=== PATIENT | female | born 1945 | race Caucasian/White ===

== ENCOUNTER 2017-12-18 09:12 | Outpatient (CLI) | payer MEDICARE | END 2017-12-18 09:13 | disposition home or self-care (01) | LOC: BICMAMMO 09:12 | PROVIDERS: ATTEND Obstetrics & Gynecology | DX: Z12.31 Encounter for screening mammogram for malignant neoplasm of breast (principal) | CPT/HCPCS: 77063; 77067 ==

== ENCOUNTER 2018-02-05 08:44 | Outpatient (CLI) | payer MEDICARE ==
[2018-02-05 09:42] LABS: Hemoglobin 14.6 g/dL (12.0-16.0); Mean Corpuscular HGB CONC 33.4 g/dL (32.0-36.0); Mean Corpuscular Hemoglobin 33.2 pg (27.0-31.0); Mean Corpuscular Volume 99.5 fL (78.0-98.0); Mean Platelet Volume 7.2 fL (7.4-10.4); Platelet Count 218 thou/uL (130-400); RBC Distribution Width 11.4 % (11.5-14.5); Red Blood Cell (RBC) Count 4.39 mill/uL (4.20-5.40)
[2018-02-05 09:58] LABS: Anion Gap 12 mmol/L (10-20); BUN (Urea Nitrogen) 31 mg/dL (9.8-20.1); Calc. Creatinine Clearance 0 mL/min (70-130); Calcium 9.6 mg/dL (7.8-10.44); Carbon Dioxide 27 mmol/L (23-31); Chloride 105 mmol/L (98-107); Estimated GFR-MDRD 75; Glucose 118 mg/dL (83-110); Potassium 3.9 mmol/L (3.5-5.1); Sodium 140 mmol/L (136-145)
[2018-02-05 10:00] LABS: PTT 30.2 SEC (22.9-36.1); Prothrombin Time 13.2 SEC (12.0-14.7)
== END 2018-02-05 08:45 | disposition home or self-care (01) ==
LOC: LABBT 08:44
PROVIDERS: ATTEND Orthopaedic Surgery
DX: Z01.818 Encounter for other preprocedural examination (principal); M17.12 Unilateral primary osteoarthritis, left knee
CPT/HCPCS: 80048; 85027; 85610; 85730; 86850; 86900; 86901; 87081; 93005; 93010

== ENCOUNTER 2018-02-05 08:45 | Inpatient (IN) | payer MEDICARE ==
[2018-02-05 09:09] VITALS: BMI 28.3
[2018-02-09] MEDS ORDERED: Fentanyl 100 MCG/2 ML VIAL ONE ×3 (09:37→15:34)
[2018-02-09] MEDS ORDERED: Midazolam HCl 2 mg/2 ml Vial ONE (09:37)
[2018-02-09] MEDS ORDERED: traMADol HCl 50 MG TAB PO PRN ×3 (10:10→11:45)
[2018-02-09] MEDS ORDERED: Promethazine HCl 25 MG/ML VIAL IM PRN ×3 (10:10→13:26)
[2018-02-09] MEDS ORDERED: HYDROcodone/Acetaminophen 10/325 mg Tablet PO PRN (10:10)
[2018-02-09] MEDS ORDERED: Ondansetron HCl/PF 4 MG/2 ML Vial IVP PRN ×3 (10:10→13:26)
[2018-02-09] MEDS ORDERED: diphenhydrAMINE 25 MG CAP PO PRN (10:10)
[2018-02-09] MEDS ORDERED: Zolpidem Tartrate 5 MG TAB PO PRN ×2 (10:10→11:45)
[2018-02-09] MEDS ORDERED: Acetaminophen 325 MG TAB PO PRN (10:10)
[2018-02-09] MEDS ORDERED: Acetaminophen 1,000 MG in Premix Bag 1 BAG IVPB SCH (10:15)
[2018-02-09] MEDS ORDERED: Sodium Chloride 0.9% 100 ML ONE (10:46)
[2018-02-09] MEDS ORDERED: Melatonin 3 MG TAB PO PRN (11:00)
[2018-02-09] MEDS ORDERED: Ketorolac Tromethamine 30 MG/ML VIAL IVP PRN (11:45)
[2018-02-09] MEDS ORDERED: Fentanyl 100 MCG/2 ML VIAL IV PRN (11:46)
[2018-02-09] MEDS ORDERED: HYDROcodone/Acetaminophen 7.5/325 mg Tablet PO PRN (11:47)
[2018-02-09] MEDS ORDERED: Bupivacaine 0.5% 50 ML in Sodium Chloride 0.9% 50 ML NERVE BLCK SCH (12:00)
[2018-02-09] MEDS ORDERED: Neomycin-Polymyxin 1 ML AMP ONE ×2 (12:25→12:26)
[2018-02-09] MEDS ORDERED: Bupivacaine/Epinephrine 0.25% 30 ML VIAL ONE (12:25)
[2018-02-09] MEDS ORDERED: Promethazine HCl 25 MG/ML VIAL SLOW IVP PRN (13:26)
[2018-02-09] MEDS ORDERED: CEFAZOLIN/Water 2 GM/20 ML SYRINGE SLOW IVP SCH (14:00)
[2018-02-09] MEDS ORDERED: Ropivacaine 0.5% HCl/PF (150 MG/30 ML VIAL) ONE (14:31)
[2018-02-09] MEDS ORDERED: Bupivacaine 0.25% HCL 30 ML VIAL ONE (14:31)
[2018-02-09] MEDS ORDERED: PROPOFOL 200 MG/20 ML VIAL ONE (15:03)
[2018-02-09] MEDS ORDERED: Ondansetron HCl/PF 4 MG/2 ML Vial ONE (15:03)
[2018-02-09] MEDS ORDERED: Dexamethasone 20 MG/5 ML VIAL ONE (15:03)
[2018-02-09] MEDS ORDERED: Lidocaine 1% PF 5 ML VIAL ONE (15:03)
[2018-02-09] MEDS ORDERED: Ketorolac Tromethamine 30 MG/ML VIAL ONE (15:13)
[2018-02-09] MEDS ORDERED: HumaLOG 300 UNITS/3 ML VIAL SC PRN ×2 (15:24)
[2018-02-09] MEDS ORDERED: Dextrose 50% Abboject 50 ML SYRINGE SLOW IVP PRN (15:24)
[2018-02-09] MEDS ORDERED: Dextrose 5% in Water 1,000 ML IV PRN (15:24)
[2018-02-09] MEDS ORDERED: hydrALAZINE 20 MG/ML VIAL SLOW IVP PRN (15:26)
[2018-02-09] MEDS ORDERED: Loperamide HCl 2 MG CAP PO PRN (15:26)
[2018-02-09] MEDS ORDERED: Milk Of Magnesia 30 ML UDCUP PO PRN (15:26)
[2018-02-09] MEDS ORDERED: Eucerin (Mineral Oil/Petrolatum,White) 30 gm Jar TOP PRN (15:26)
[2018-02-09] MEDS ORDERED: Chloraseptic Spray 180 ml Bottle PO PRN (15:26)
[2018-02-09] MEDS ORDERED: Diabetic Tussin 200 MG/10 ML UDCUP PO PRN (15:26)
[2018-02-09] MEDS ORDERED: Artificial Tears 18 DROP/0.9 ML EA EYE PRN (15:26)
--- NOTE | 2018-02-09 15:38 | RAD ---
LEFT KNEE TWO VIEWS: History: Arthritis. Knee replacement. FINDINGS: Total knee prosthesis is in place without perihardware lucency. Soft tissue gas, intramedullary gas, and skin shamika are visible. IMPRESSION: Left knee prosthesis is in good radiographic position. POS: [facility]
--- NOTE | 2018-02-09 15:55 | CON ---
DATE OF CONSULTATION: 02/09/2018 PRIMARY CARE PHYSICIAN: Fish Nolasco M.D. REASON FOR CONSULTATION: Medical comanagement. REASON FOR ADMISSION: Left total knee replacement. HISTORY OF PRESENT ILLNESS: A 72-year-old female who has osteoarthritis of knee. She had previously right total knee replacement in [address] Quezada admitted electively for left total kn ee replacement, which was done without any complication. I saw this patient in a PICU. The patient was waking up from anesthesia. She was not complaining of any pain. Her monitor was in sinus rhythm . Her vitals were stable. The patient denies any UTI symptoms, constipation, diarrhea, melena or he matochezia. She does not have any chest pain. REVIEW OF SYSTEMS: Please see my HPI for pertinent positive and negative. All other review of syste ms reviewed and negative except as mentioned in the HPI. Constitutional: Weight loss or gain, ability to conduct usual activities. Skin: Rash, itching. Eyes: Double vision, pain. ENT/Mouth: Nose bleeding, neck stiffness, pain, tenderness. Cardiovascular: Palpitations, dyspnea on exertion, orthopnea. Respiratory: Shortness of breath, wheezing, cough, hemoptysis, fever or night sweats. Gastrointestinal: Poor appetite, abdominal pain, heartburn, nausea, vomiting, constipation, or diarrhea. Genitourinary: Urgency, frequency, dysuria, nocturia. Musculoskeletal: Pain, swelling. Neurologic/Psychiatric: Anxiety, depression. Allergy/Immunologic: Skin rash, bleeding tendency. PAST MEDICAL HISTORY: Diabetes type 2; history of deep venous thrombosis, on chronic anticoagulation ; polymyalgia rheumatica; obstructive sleep apnea; chronic venous insufficiency; hypertension; dyslip idemia. PAST SURGICAL HISTORY: Tonsillectomy, foot surgery, hysterectomy, carpal tunnel repair, left hand thomson rgery, right total knee replacement, status post left total knee replacement, anterior cervical fusio n, hysterectomy. PAST PSYCHIATRIC HISTORY: Reviewed and negative. FAMILY HISTORY: Father from cancer. Mother from unknown medical problem. ALLERGIES: SULFA DRUGS. CURRENT HOME MEDICATIONS: Eliquis 2.5 mg p.o. b.i.d., Lipitor 40 mg p.o. daily, vitamin D3 2000 unit s p.o. daily, vitamin B12 1000 mcg p.o. daily, dapagliflozin 5 mg p.o. daily, losartan 50 mg p.o. kirstie ly, omeprazole 20 mg p.o. daily, Actos 30 mg p.o. daily, prednisone 5 mg p.o. daily, Januvia 100 mg p .o. daily. HOSPITAL COURSE: Reviewed. SOCIAL HISTORY: The patient lives at home. No history of tobacco, alcohol or illicit drug abuse. PHYSICAL EXAMINATION: VITAL SIGNS: Currently on monitor showing blood pressure 134/80, pulse 72, respiratory rate 18, afeb rile, saturation normal on 2 liters nasal cannula. Weight 155 pounds. GENERAL: The patient is currently alert, awake, no obvious acute distress. HEENT: Normocephalic, atraumatic. Eyes: Pupils round, reactive to light. Extraocular muscle intac t. ENT: Oropharynx within normal limits. Moist mucous membranes. No oral lesion, no pharyngeal erythe ma, no exudate. NECK: Supple, no JVD, no thyromegaly, no carotid bruit, no jugular venous distention. LUNGS: Clear to auscultation without any rhonchi or rales. CARDIAC: S1, S2 regular. No murmur, no gallop, no rub. ABDOMEN: Soft, bowel sounds present, nontender, nondistended. No organomegaly, no mass, no suprapub ic tenderness. BACK: Unremarkable, no CVA tenderness. EXTREMITIES: Upper extremity: Passive movement of all joints are normal. Lower extremities: Left knee covered with a dressing. NEUROLOGIC: Grossly nonfocal examination. SIGNIFICANT LABORATORY: Most recent labs, CBC: WBC 6.0, hemoglobin 14.6, platelet 218. INR 1.0. B MP: Sodium 140, potassium 3.9, chloride 105, carbon dioxide 27, BUN 31, creatinine 0.76, glucose 118 , calcium 9.6. ASSESSMENT AND PLAN: 1. Status post left total knee replacement. The patient will get anticoagulation with aspirin 81 mg p.o. b.i.d. Nerve block as per Anesthesia for pain control. Pain medication to control her pain. PT/OT as per [facility] protocol. 2. Hypertension. We will continue losartan 50 mg p.o. daily. We will hold her blood pressure medic ation if blood pressure systolic less than 120. We will monitor vitals while in hospital and adjust medication accordingly. 3. Dyslipidemia. Continue Lipitor 40 mg p.o. daily. 4. Gastroesophageal reflux disease. Continue Protonix 40 mg p.o. daily. 5. Diabetes type 2. Insulin as per sliding scale per protocol. Continue home medication Actos 30 m g p.o. daily. Diabetic diet will be given. 6. Deep venous thrombosis prophylaxis. The patient is already on aspirin therapy per protocol. 7. Gastrointestinal prophylaxis, Protonix 40 mg p.o. daily. CODE STATUS: The patient is FULL CODE. The patient does not have any obvious surrogate decision john er at this point. Disposition plan based on clinical course. Thank you for the consult. We will follow up with you while in hospital.
[2018-02-09] MEDS: REFRESH PLUS (Carboxymethylcellulose 0.5%) Opth Drops EA EYE SCH ×2 (17:15→18:51)
[2018-02-09] MEDS ORDERED: cycloSPORINE 0.05% Ophthalmic Droperette EA EYE SCH (21:00)
[2018-02-09] MEDS: Sodium Chloride 0.9% 1,000 ML IV SCH ×2 (21:11→21:42)
[2018-02-09] MEDS: cycloSPORINE 0.05% Ophthalmic Droperette EA EYE SCH (21:26)
[2018-02-09] MEDS: Doxycycline 100 MG CAP PO SCH (21:26)
[2018-02-09] MEDS: CEFAZOLIN/Water 2 GM/20 ML SYRINGE SLOW IVP SCH (21:29)
[2018-02-09] MEDS: Aspirin 81 mg Enteric Coated Tablet PO SCH (21:36)
[2018-02-09] MEDS: GENTEAL SEVERE 10 GM TUBE EA EYE SCH (21:37)
[2018-02-09] MEDS: Lacri-Lube Opth Oint 3.5 GM TUBE EA EYE SCH (21:41)
[2018-02-10] MEDS: Bupivacaine 0.5% 50 ML in Sodium Chloride 0.9% 50 ML NERVE BLCK SCH ×2 (03:24→16:13)
[2018-02-10] MEDS: Sodium Chloride 0.9% 1,000 ML IV SCH ×2 (05:20→16:24)
[2018-02-10] MEDS: CEFAZOLIN/Water 2 GM/20 ML SYRINGE SLOW IVP SCH (05:26)
[2018-02-10 05:27] LABS: Hemoglobin 13.4 g/dL (12.0-16.0); Mean Corpuscular HGB CONC 33.8 g/dL (32.0-36.0); Mean Corpuscular Hemoglobin 33.5 pg (27.0-31.0); Mean Platelet Volume 7.5 fL (7.4-10.4); Platelet Count 191 thou/uL (130-400); RBC Distribution Width 11.2 % (11.5-14.5); White Blood Cell (WBC) Count 12.7 thou/uL (4.8-10.8)
[2018-02-10] MEDS: Senokot S 8.6-50 MG TAB PO SCH ×2 (09:26→20:20)
[2018-02-10] MEDS: Ferrous Gluconate 324 MG TAB PO SCH ×2 (09:26→20:20)
[2018-02-10] MEDS: Aspirin 81 mg Enteric Coated Tablet PO SCH (09:27)
[2018-02-10] MEDS: Losartan 25 MG TAB PO SCH (09:28)
[2018-02-10] MEDS: predniSONE 5 MG TAB PO SCH (09:28)
[2018-02-10] MEDS: Alogliptin 25 MG TAB PO SCH (09:29)
[2018-02-10] MEDS: Apixaban 2.5 MG TAB PO SCH ×2 (09:29→20:20)
[2018-02-10] MEDS: Atorvastatin Calcium 40 MG TAB PO SCH (09:31)
[2018-02-10] MEDS: Doxycycline 100 MG CAP PO SCH ×3 (09:44→20:20)
[2018-02-10] MEDS: cycloSPORINE 0.05% Ophthalmic Droperette EA EYE SCH ×2 (09:49→20:19)
[2018-02-10] MEDS: GENTEAL SEVERE 10 GM TUBE EA EYE SCH ×4 (09:50→21:39)
[2018-02-10] MEDS: Pioglitazone HCl 15 MG TAB PO SCH (09:51)
[2018-02-10] MEDS: Multivitamin W/ Minerals 1 TAB PO SCH (09:52)
--- NOTE | 2018-02-10 10:59 | PDOC.PN ---
- Subjective Encounter Start Date: 02/10/18 Encounter Start Time: 08:10 -: old records requested/rev Patient seen and examined. No new complaints. No overnight events her pain is controlled - Objective Resuscitation Status: Resuscitation Status FULL:Full Resuscitation MAR Reviewed: Yes Vital Signs & Weight: Vital Signs (12 hours) Temp Pulse Resp BP Pulse Ox 02/10/18 07:40 98.6 F 83 18 147/71 H 98 02/10/18 07:35 98.5 F 81 16 02/10/18 05:00 98.5 F 81 16 129/73 96 02/10/18 00:05 98.2 F 91 16 116/73 95 Weight Weight 155 lb I&O: 02/09/18 02/10/18 02/11/18 06:59 06:59 06:59 Intake Total 360 Output Total 2250 Balance -1890 Result Diagrams: 02/10/18 04:54 Additional Labs: Accuchecks 02/10/18 02/09/18 02/09/18 06:32 22:13 17:30 POC Glucose 179 H 281 H 152 H Phys Exam - Physical Examination Constitutional: NAD HEENT: PERRLA, moist MMs, sclera anicteric Neck: no JVD, supple Respiratory: no wheezing, no rales, no rhonchi Cardiovascular: RRR, no significant murmur, no rub Gastrointestinal: soft, non-tender, no distention, positive bowel sounds Musculoskeletal: no edema, pulses present left knee with dressing, nerve block+ Neurological: non-focal, normal sensation, moves all 4 limbs Psychiatric: normal affect, A&O x 3 Skin: no rash, normal turgor Dx/Plan (1) Status post total left knee replacement Code(s): Z96.652 - PRESENCE OF LEFT ARTIFICIAL KNEE JOINT Status: Acute (2) Chronic anticoagulation Code(s): Z79.01 - GROUP HOME (CURRENT) USE OF ANTICOAGULANTS Status: Chronic (3) DM II (diabetes mellitus, type II), controlled Code(s): E11.9 - TYPE 2 DIABETES MELLITUS WITHOUT COMPLICATIONS Status: Chronic (4) GERD (gastroesophageal reflux disease) Code(s): K21.9 - GASTRO-ESOPHAGEAL REFLUX DISEASE WITHOUT ESOPHAGITIS Status: Chronic (5) Hyperlipemia Code(s): E78.5 - HYPERLIPIDEMIA, UNSPECIFIED Status: Chronic (6) Hypertension Code(s): I10 - ESSENTIAL (PRIMARY) HYPERTENSION Status: Chronic Comment: Stable, continue current regimen (7) H/O deep venous thrombosis Code(s): Z86.718 - PERSONAL HISTORY OF OTHER VENOUS THROMBOSIS AND EMBOLISM Status: Chronic - Plan cont current plan of care, plan discussed w/ family, PT/OT * elliquis started today * will dc aspirin * continue PT/OT as per [facility] protocol treatment * pain controlled * nerve block as per anesthesia * possible discharge tomorrow * medication reviewed as below * symptomatic treatment. Review of Systems - Review of Systems Eyes: negative: Pain, Vision Change, Conjunctivae Inflammation, Eyelid Inflammation, Redness, Other ENT: negative: Ear Pain, Ear Discharge, Nose Pain, Nose Discharge, Nose Congestion, Mouth Pain, Mouth Swelling, Throat Pain, Throat Swelling, Other Respiratory: negative: Cough, Dry, Shortness of Breath, Hemoptysis, SOB with Excertion, Pleuritic Pain, Sputum, Wheezing Cardiovascular: negative: chest pain, palpitations, orthopnea, paroxysmal nocturnal dyspnea, edema, light headedness, other Gastrointestinal: negative: Nausea, Vomiting, Abdominal Pain, Diarrhea, Constipation, Melena, Hematochezia, Other Genitourinary: negative: Dysuria, Frequency, Incontinence, Hematuria, Retention , Other Musculoskeletal: negative: Neck Pain, Shoulder Pain, Arm Pain, Back Pain, Hand Pain, Leg Pain, Foot Pain, Other Skin: negative: Rash, Lesions, Elijah, Bruising, Other - Medications/Allergies Allergies/Adverse Reactions: Allergies Allergy/AdvReac Type Severity Reaction Status Date / Time Sulfa (Sulfonamide Allergy Hives Verified 02/05/18 09:09 Antibiotics) Medications: Current Medications Acetaminophen (Tylenol) 650 mg PO Q4H PRN PRN Reason: LEWIS/ T > 101F; Mild Pain (1-3) Hydrocodone Bitart/Acetaminophen ([place] 7.5/325) 1 tab PO Q4H PRN PRN Reason: Mild Pain (1-3) Hydrocodone Bitart/Acetaminophen ([place] 7.5/325) 2 tab PO Q4H PRN PRN Reason: Moderate Pain (4-6) Alogliptin Benzoate (Alogliptin) 25 mg PO QAM [facility] Last Admin: 02/10/18 09:29 Dose: 25 mg Apixaban (Eliquis) 2.5 mg PO BID [facility] Last Admin: 02/10/18 09:29 Dose: 2.5 mg Artificial Tears (Tears Naturale) 0 drop EA EYE PRN PRN PRN Reason: Dry Eyes Aspirin (Ecotrin) 81 mg PO BID [facility] Last Admin: 02/10/18 09:27 Dose: 81 mg Atorvastatin Calcium (Lipitor) 40 mg PO QAM [facility] Last Admin: 02/10/18 09:31 Dose: 40 mg Cyclosporine (Restasis) 0 ml EA EYE BID [facility] Last Admin: 02/10/18 09:49 Dose: Not Given Dextrose/Water (Dextrose 50%) 25 gm SLOW IVP PRN PRN PRN Reason: Hypoglycemia Diphenhydramine HCl (Benadryl) 25 mg PO Q6H PRN PRN Reason: Itching Doxycycline Hyclate (Vibramycin) 100 mg PO BID [facility] Last Admin: 02/10/18 09:44 Dose: 100 mg Fentanyl (Sublimaze) 50 mcg IV Q1H PRN PRN Reason: Breakthrough Pain Ferrous Gluconate (Fergon) 324 mg PO BID [facility] Last Admin: 02/10/18 09:26 Dose: 324 mg Glucagon (Glucagon) 1 mg IM PRN PRN PRN Reason: Hypoglycemia Guaifenesin (Robitussin Sf) 200 mg PO Q4H PRN PRN Reason: Cough Hydralazine HCl (Apresoline) 10 mg SLOW IVP Q4H PRN PRN Reason: Systolic BP > 180 Hypromellose (Genteal Severe) 0 gm EA EYE QID [facility] Last Admin: 02/10/18 09:50 Dose: Not Given Sodium Chloride (Normal Saline 0.9%) 1,000 mls @ 100 mls/hr IV .Q10H [facility] Last Admin: 02/10/18 05:20 Dose: Not Given Bupivacaine HCl 50 ml/ Sodium (Chloride) 100 mls @ 8 mls/hr NERVE BLCK INF [facility] Last Admin: 02/10/18 03:24 Dose: 100 mls Dextrose/Water (D5w) 1,000 mls @ 0 mls/hr IV .Q0M PRN; As Directed PRN Reason: Hypoglycemia Insulin Human Lispro (Humalog) 0 units SC .MODERATE SLIDING SC PRN PRN Reason: Moderate Correctional Scale Insulin Human Lispro (Humalog) 0 units SC .BEDTIME SLIDING SC PRN PRN Reason: Bedtime Correctional Scale Iron/Minerals/Multivitamins (Theragran M) 1 tab PO DAILY [facility] Last Admin: 02/10/18 09:52 Dose: 1 tab Ketorolac Tromethamine (Toradol) 15 mg IVP Q6H PRN PRN Reason: Moderate Pain (4-6) Stop: 02/12/18 11:46 Loperamide HCl (Imodium) 2 mg PO PRN PRN PRN Reason: Diarrhea/Loose Stools Losartan Potassium (Cozaar) 50 mg PO [facility] Last Admin: 02/10/18 09:28 Dose: 50 mg Magnesium Hydroxide (Milk Of Magnesium) 30 ml PO DAILYPRN PRN PRN Reason: Constipation Melatonin (Melatonin) 4.5 mg PO HS PRN PRN Reason: Insomnia Mineral Oil/White Petrolatum (Lacri-Lube Ointment) 0 gm EA EYE HS [facility] Last Admin: 02/09/18 21:41 Dose: Not Given Mineral Oil/White Petrolatum (Eucerin Cream) 0 gm TOP BIDPRN PRN PRN Reason: Dry Skin Morphine Sulfate (Morphine) 2 mg IVP Q2H PRN PRN Reason: Moderate Pain (4-6) Morphine Sulfate (Morphine Sulfate) 4 mg IVP Q2H PRN PRN Reason: Severe Pain (7-10) Ondansetron HCl (Zofran) 4 mg IVP Q6H PRN PRN Reason: Nausea/Vomiting Pantoprazole Sodium (Protonix) 40 mg PO DAILY [facility] Last Admin: 02/10/18 09:54 Dose: 40 mg Dapagliflozin Propanediol [Farxiga ] 5 Mg 0 each PO [facility] Phenol (Chloraseptic [place] 180 Ml Bot) 0 ml PO PRN PRN PRN Reason: Sore Throat Pioglitazone HCl (Actos) 30 mg PO [facility] Last Admin: 02/10/18 09:51 Dose: 30 mg Prednisone (Prednisone) 5 mg PO [facility] Last Admin: 02/10/18 09:28 Dose: 5 mg Promethazine HCl (Phenergan) 12.5 mg IM Q4H PRN PRN Reason: Nausea Senna/Docusate Sodium (Senokot S) 2 tab PO BID [facility] Last Admin: 02/10/18 09:26 Dose: 2 tab Sodium Chloride (Flush - Normal Saline) 10 ml IVF PRN PRN PRN Reason: Saline Flush Last Admin: 02/10/18 05:26 Dose: 10 ml Tramadol HCl (Ultram) 50 mg PO Q6H PRN PRN Reason: Mild Pain (1-3) Tramadol HCl (Ultram) 100 mg PO Q6H PRN PRN Reason: Moderate Pain 4-6 Zolpidem Tartrate (Ambien) 5 mg PO HSPRN PRN PRN Reason: Insomnia
--- NOTE | 2018-02-10 12:08 | OP ---
DATE OF PROCEDURE: 02/09/2018 PREOPERATIVE DIAGNOSIS: Osteoarthrosis, left knee. POSTOPERATIVE DIAGNOSIS: Osteoarthrosis, left knee. PROCEDURE: Left total knee arthroplasty. ANESTHESIA: General. SURGEON: Dr. Epi Quezada OPERATING ENGINEER: DOE Macias COMPLICATIONS: None. CONDITION: Good. ESTIMATED BLOOD LOSS: Minimal. DRAINS: None. TOURNIQUET: Per anesthesia. TECHNIQUE: Consent was obtained. The patient was taken to the operating room and placed in supine p osition. After adequate general anesthesia achieved, the patient's left knee was examined. She has significant patellofemoral crepitus, moderate effusion, mild valgus deformities. She was then positi oned, prepped and draped in the usual sterile fashion. Tourniquet placed on left upper thigh. Leg w as elevated, exsanguinated, and tourniquet inflated prior to incision. Standard midline vertical inc ision was made. It was taken down to subcutaneous tissues exposing extensor mechanism. Medial parap atellar arthrotomy was performed. Patella subluxed laterally. The patient had severe erosive change s over the lateral trochlea and the entire patella which was grade 4 eburnated bone. The patient has significant devalgus of the distal femur with a hypoplastic lateral condyle. Using intramedullary g uide, distal 5 degree resection on valgus resection on the femur was performed using AP and epicondyl ar axis. Proper rotation, position, a size 4 cutting block was placed. Anterior, posterior, and mitesh mfer cuts were completed for the size 4 evolution femur. The tibia was then subluxed anteriorly. Us ing external guide, appropriate resection was performed. Cruciate ligaments were debrided and flexio n, extension gaps were then balanced at 0 and 90 degrees with the 10 mm spacer. Patella was then car efully resected 5-6 mm off the medial portion and the remaining area was smoothed, osteophytes remove d and a 29 mm patella was medialized. The trial components were then placed, 4 femur, 4 tibia, 10 mm bearing surface, 29 patella was put through range of motion. The patient had excellent patellofemor al alignment, tracking, full range of motion. Ligaments were stable. The tibial baseplate was then marked and prepared with a broach. All surfaces were irrigated copiously, dried. Femur, tibia, and patella cemented. Excess cement removed and again trialed with the 10 mm bearing surface. This was chosen and snap fit. After copious irrigation arthrotomy closed with #2 mersilene, #1 Vicryl, subq w ith 0 and 2-0 Vicryl, and the skin with shamika. Sterile bulky dressing was applied and patient take n to recovery. Prognosis is good.
[2018-02-10] MEDS: Dapagliflozin Propanediol [Farxiga] 5 MG PO SCH (13:41)
[2018-02-10] MEDS: Lacri-Lube Opth Oint 3.5 GM TUBE EA EYE SCH (21:39)
[2018-02-11] MEDS: Sodium Chloride 0.9% 1,000 ML IV SCH (01:51)
[2018-02-11] MEDS: Bupivacaine 0.5% 50 ML in Sodium Chloride 0.9% 50 ML NERVE BLCK SCH (04:09)
[2018-02-11 04:45] LABS: Hemoglobin 12.9 g/dL (12.0-16.0); Mean Corpuscular HGB CONC 34.6 g/dL (32.0-36.0); Mean Corpuscular Hemoglobin 33.6 pg (27.0-31.0); Mean Corpuscular Volume 97.3 fL (78.0-98.0); Mean Platelet Volume 7.6 fL (7.4-10.4); Platelet Count 180 thou/uL (130-400); RBC Distribution Width 11.2 % (11.5-14.5); Red Blood Cell (RBC) Count 3.83 mill/uL (4.20-5.40); White Blood Cell (WBC) Count 10.3 thou/uL (4.8-10.8)
[2018-02-11] MEDS ORDERED: Acetaminophen ER (8hr) 650 MG TAB PO PRN (06:35)
[2018-02-11 07:44] VITALS: BP 146/74
[2018-02-11] MEDS: HYDROcodone/Acetaminophen 7.5/325 mg Tablet PO PRN ×2 (08:35→13:11)
[2018-02-11] MEDS: Senokot S 8.6-50 MG TAB PO SCH (08:36)
[2018-02-11] MEDS: Alogliptin 25 MG TAB PO SCH (08:36)
[2018-02-11] MEDS: Losartan 25 MG TAB PO SCH (08:36)
[2018-02-11] MEDS: Ferrous Gluconate 324 MG TAB PO SCH (08:36)
[2018-02-11] MEDS: predniSONE 5 MG TAB PO SCH (08:36)
[2018-02-11] MEDS: Pioglitazone HCl 15 MG TAB PO SCH (08:36)
[2018-02-11] MEDS: Multivitamin W/ Minerals 1 TAB PO SCH (08:37)
[2018-02-11] MEDS: Atorvastatin Calcium 40 MG TAB PO SCH (08:37)
[2018-02-11] MEDS: Apixaban 2.5 MG TAB PO SCH (08:38)
[2018-02-11] MEDS: Dapagliflozin Propanediol [Farxiga] 5 MG PO SCH (08:38)
[2018-02-11] MEDS: Doxycycline 100 MG CAP PO SCH (08:38)
[2018-02-11] MEDS ORDERED: Cyanocobalamin (Vitamin B-12) 1,000 MCG TAB PO SCH (09:00)
[2018-02-11] MEDS ORDERED: Non-Formulary Item 1 EACH (Apixaban [Eliquis] 2.5 MG) PO SCH (09:00)
--- NOTE | 2018-02-11 11:07 | PDOC.PN ---
- Subjective Encounter Start Date: 02/11/18 Encounter Start Time: 08:10 Patient seen and examined. No new complaints. No overnight events - Objective Resuscitation Status: Resuscitation Status FULL:Full Resuscitation MAR Reviewed: Yes Vital Signs & Weight: Vital Signs (12 hours) Temp Pulse Resp BP BP BP Pulse Ox 02/11/18 07:22 99.4 F 104 H 20 146/74 H 93 L 02/11/18 04:00 99.5 F 98 18 131/71 95 02/11/18 00:40 100.4 F H 103 H 18 131/73 94 L Weight Admit Weight 155 lb Weight 155 lb I&O: 02/10/18 02/11/18 02/12/18 06:59 06:59 06:59 Intake Total 360 2380 Output Total 2250 1400 Balance -1890 980 Result Diagrams: 02/11/18 03:32 Additional Labs: Accuchecks 02/11/18 02/10/18 02/10/18 05:46 21:31 17:00 POC Glucose 122 H 160 H 213 H 02/10/18 11:26 POC Glucose 130 H Phys Exam - Physical Examination Constitutional: NAD HEENT: PERRLA, moist MMs, sclera anicteric Neck: no JVD, supple Respiratory: no wheezing, no rales, no rhonchi Cardiovascular: RRR, no significant murmur, no rub Gastrointestinal: soft, non-tender, no distention, positive bowel sounds Musculoskeletal: no edema, pulses present Neurological: non-focal, normal sensation, moves all 4 limbs Psychiatric: normal affect, A&O x 3 Skin: no rash, normal turgor Dx/Plan (1) Status post total left knee replacement Code(s): Z96.652 - PRESENCE OF LEFT ARTIFICIAL KNEE JOINT Status: Acute (2) Chronic anticoagulation Code(s): Z79.01 - [facility]LTER (CURRENT) USE OF ANTICOAGULANTS Status: Chronic (3) DM II (diabetes mellitus, type II), controlled Code(s): E11.9 - TYPE 2 DIABETES MELLITUS WITHOUT COMPLICATIONS Status: Chronic (4) GERD (gastroesophageal reflux disease) Code(s): K21.9 - GASTRO-ESOPHAGEAL REFLUX DISEASE WITHOUT ESOPHAGITIS Status: Chronic (5) Hyperlipemia Code(s): E78.5 - HYPERLIPIDEMIA, UNSPECIFIED Status: Chronic (6) Hypertension Code(s): I10 - ESSENTIAL (PRIMARY) HYPERTENSION Status: Chronic Comment: Stable, continue current regimen (7) H/O deep venous thrombosis Code(s): Z86.718 - PERSONAL HISTORY OF OTHER VENOUS THROMBOSIS AND EMBOLISM Status: Chronic - Plan cont current plan of care, PT/OT * medication reviewed as below * symptomatic treatment * see discharge atrik. Review of Systems - Review of Systems ENT: negative: Ear Pain, Ear Discharge, Nose Pain, Nose Discharge, Nose Congestion, Mouth Pain, Mouth Swelling, Throat Pain, Throat Swelling, Other Respiratory: negative: Cough, Dry, Shortness of Breath, Hemoptysis, SOB with Excertion, Pleuritic Pain, Sputum, Wheezing Cardiovascular: negative: chest pain, palpitations, orthopnea, paroxysmal nocturnal dyspnea, edema, light headedness, other Gastrointestinal: negative: Nausea, Vomiting, Abdominal Pain, Diarrhea, Constipation, Melena, Hematochezia, Other Genitourinary: negative: Dysuria, Frequency, Incontinence, Hematuria, Retention , Other Musculoskeletal: negative: Neck Pain, Shoulder Pain, Arm Pain, Back Pain, Hand Pain, Leg Pain, Foot Pain, Other - Medications/Allergies Allergies/Adverse Reactions: Allergies Allergy/AdvReac Type Severity Reaction Status Date / Time Sulfa (Sulfonamide Allergy Hives Verified 02/05/18 09:09 Antibiotics) Medications: Current Medications Acetaminophen (Tylenol) 650 mg PO Q4H PRN PRN Reason: LEWIS/ T > 101F; Mild Pain (1-3) Acetaminophen (Tylenol Er (8hr Arthritis Pain)) 650 mg PO Q8H PRN PRN Reason: Pain 1-3 Hydrocodone Bitart/Acetaminophen ([place] 7.5/325) 1 tab PO Q4H PRN PRN Reason: Mild Pain (1-3) Hydrocodone Bitart/Acetaminophen ([place] 7.5/325) 2 tab PO Q4H PRN PRN Reason: Moderate Pain (4-6) Last Admin: 02/11/18 08:35 Dose: 2 tab Alogliptin Benzoate (Alogliptin) 25 mg PO QAM [facility] Last Admin: 02/11/18 08:36 Dose: 25 mg Apixaban (Eliquis) 2.5 mg PO BID [facility] Last Admin: 02/11/18 08:38 Dose: 2.5 mg Artificial Tears (Tears Naturale) 0 drop EA EYE PRN PRN PRN Reason: Dry Eyes Atorvastatin Calcium (Lipitor) 40 mg PO QAM [facility] Last Admin: 02/11/18 08:37 Dose: 40 mg Cholecalciferol (Vitamin D3) [facility] Last Admin: 02/11/18 08:36 Dose: 2,000 units Cyanocobalamin (Vitamin B-12) 1,000 mcg PO QAM [facility] Last Admin: 02/11/18 08:37 Dose: 1,000 mcg Cyclosporine (Restasis) 0 ml EA EYE BID [facility] Last Admin: 02/10/18 20:19 Dose: 0.4 ml Dextrose/Water (Dextrose 50%) 25 gm SLOW IVP PRN PRN PRN Reason: Hypoglycemia Diphenhydramine HCl (Benadryl) 25 mg PO Q6H PRN PRN Reason: Itching Doxycycline Hyclate (Vibramycin) 100 mg PO BID [facility] Last Admin: 02/11/18 08:38 Dose: 100 mg Fentanyl (Sublimaze) 50 mcg IV Q1H PRN PRN Reason: Breakthrough Pain Ferrous Gluconate (Fergon) 324 mg PO BID [facility] Last Admin: 02/11/18 08:36 Dose: 324 mg Glucagon (Glucagon) 1 mg IM PRN PRN PRN Reason: Hypoglycemia Guaifenesin (Robitussin Sf) 200 mg PO Q4H PRN PRN Reason: Cough Hydralazine HCl (Apresoline) 10 mg SLOW IVP Q4H PRN PRN Reason: Systolic BP > 180 Hypromellose (Genteal Severe) 0 gm EA EYE QID [facility] Last Admin: 02/10/18 21:39 Dose: Not Given Sodium Chloride (Normal Saline 0.9%) 1,000 mls @ 100 mls/hr IV .Q10H [facility] Last Admin: 02/11/18 01:51 Dose: Not Given Bupivacaine HCl 50 ml/ Sodium (Chloride) 100 mls @ 8 mls/hr NERVE BLCK INF [facility] Last Admin: 02/11/18 04:09 Dose: 100 mls Dextrose/Water (D5w) 1,000 mls @ 0 mls/hr IV .Q0M PRN; As Directed PRN Reason: Hypoglycemia Insulin Human Lispro (Humalog) 0 units SC .MODERATE SLIDING SC PRN PRN Reason: Moderate Correctional Scale Insulin Human Lispro (Humalog) 0 units SC .BEDTIME SLIDING SC PRN PRN Reason: Bedtime Correctional Scale Iron/Minerals/Multivitamins (Theragran M) 1 tab PO DAILY [facility] Last Admin: 02/11/18 08:37 Dose: 1 tab Ketorolac Tromethamine (Toradol) 15 mg IVP Q6H PRN PRN Reason: Moderate Pain (4-6) Stop: 02/12/18 11:46 Last Admin: 02/10/18 13:40 Dose: 15 mg Loperamide HCl (Imodium) 2 mg PO PRN PRN PRN Reason: Diarrhea/Loose Stools Losartan Potassium (Cozaar) 50 mg PO [facility] Last Admin: 02/11/18 08:36 Dose: 50 mg Magnesium Hydroxide (Milk Of Magnesium) 30 ml PO DAILYPRN PRN PRN Reason: Constipation Melatonin (Melatonin) 4.5 mg PO HS PRN PRN Reason: Insomnia Mineral Oil/White Petrolatum (Lacri-Lube Ointment) 0 gm EA EYE [facility] Last Admin: 02/10/18 21:39 Dose: Not Given Mineral Oil/White Petrolatum (Eucerin Cream) 0 gm TOP BIDPRN PRN PRN Reason: Dry Skin Morphine Sulfate (Morphine) 2 mg IVP Q2H PRN PRN Reason: Moderate Pain (4-6) Morphine Sulfate (Morphine Sulfate) 4 mg IVP Q2H PRN PRN Reason: Severe Pain (7-10) Ondansetron HCl (Zofran) 4 mg IVP Q6H PRN PRN Reason: Nausea/Vomiting Pantoprazole Sodium (Protonix) 40 mg PO DAILY [facility] Last Admin: 02/11/18 08:36 Dose: 40 mg Dapagliflozin Propanediol [Farxiga ] 5 Mg [facility] Last Admin: 02/11/18 08:38 Dose: 1 each Phenol (Chloraseptic [place] 180 Ml Bot) 0 ml PO PRN PRN PRN Reason: Sore Throat Pioglitazone HCl (Actos) [facility] Last Admin: 02/11/18 08:36 Dose: 30 mg Prednisone (Prednisone) [address] [facility] Last Admin: 02/11/18 08:36 Dose: 5 mg Promethazine HCl (Phenergan) 12.5 mg IM Q4H PRN PRN Reason: Nausea Senna/Docusate Sodium (Senokot S) 2 tab PO BID [facility] Last Admin: 02/11/18 08:36 Dose: 2 tab Sodium Chloride (Flush - Normal Saline) 10 ml IVF PRN PRN PRN Reason: Saline Flush Last Admin: 02/10/18 05:26 Dose: 10 ml Tramadol HCl (Ultram) 50 mg PO Q6H PRN PRN Reason: Mild Pain (1-3) Tramadol HCl (Ultram) 100 mg PO Q6H PRN PRN Reason: Moderate Pain 4-6 Zolpidem Tartrate (Ambien) 5 mg PO HSPRN PRN PRN Reason: Insomnia
[2018-02-11 11:49] VITALS: TEMP 98.6
[2018-02-11] MEDS: GENTEAL SEVERE 10 GM TUBE EA EYE SCH (12:35)
[2018-02-11] MEDS: cycloSPORINE 0.05% Ophthalmic Droperette EA EYE SCH (12:35)
--- NOTE | 2018-02-11 13:12 | DIS ---
DATE OF ADMISSION: 02/09/2018 DATE OF DISCHARGE: 02/11/2018 PRIMARY CARE PHYSICIAN: Dr. Gaurav Whitten PRIMARY ATTENDING: Dr. Epi Quezada. DISCHARGE DISPOSITION: Home. PRIMARY DISCHARGE DIAGNOSIS: Status post left total knee replacement. SECONDARY DISCHARGE DIAGNOSES: History of deep venous thrombosis, chronic anticoagulation with Eliqu is; diabetes type 2; gastroesophageal reflux disease; dyslipidemia; hypertension. PRIMARY PROCEDURE/OPERATION: Left total knee replacement. RADIOLOGICAL INVESTIGATION: Knee x-ray. SIGNIFICANT LABORATORY DATA: Hemoglobin 12.9. DISCHARGE MEDICATIONS: Tylenol Arthritis one tablet p.r.n., Eliquis 2.5 mg p.o. b.i.d., Lipitor 40 m g p.o. daily, vitamin D3 2000 units p.o. daily, vitamin B12 1000 mcg p.o. daily, dapagliflozin 5 mg d aily, losartan 50 mg p.o. daily, melatonin 5 mg p.o. at bedtime p.r.n., omeprazole 20 mg p.o. daily, Actos 30 mg p.o. daily, prednisone 5 mg p.o. daily, Januvia 100 mg p.o. daily. CONTRAINDICATIONS: None. CODE STATUS: FULL CODE. INPATIENT CONSULTANTS: Dr. Quezada was primary. Sound team was consulted for medical comanagement. TEST RESULTS PENDING ON DISCHARGE: None. ALLERGIES: SULFA DRUGS. DISCHARGE PLAN: Post hospital, the patient will follow up with Dr. Damien Chowdary on 02/23/2018. The patient will make appointment with primary care physician in 1 week. HOSPITAL COURSE: A 72-year-old female who was electively admitted by Dr. Quezada on 02/09/2018. We were consulted after surgery for medical comanagement. Please see my consult note for further detail . While in hospital, we continued her Eliquis for DVT prophylaxis. She did very well [facility]. The patient is planned for discharge today. The patient is seen and examined at bedside. Please see my progress note from today for further deta il. We will sign off.
== END 2018-02-11 14:18 | disposition home or self-care (01) | DRG 470 ==
LOC: SURG A 02-09 09:21 → SJJU 02-09 15:23
PROVIDERS: ADMIT Orthopaedic Surgery; ATTEND Orthopaedic Surgery
PROC: 0SRD0J9 Replacement of Left Knee Joint with Synthetic Substitute, Cemented, Open Approach (ICD-10-PCS; principal; 2018-02-09)
DX: M17.12 Unilateral primary osteoarthritis, left knee (principal); Z86.711 Personal history of pulmonary embolism; Z79.01 Long term (current) use of anticoagulants; K21.9 Gastro-esophageal reflux disease without esophagitis; E78.5 Hyperlipidemia, unspecified; I10 Essential (primary) hypertension; E11.9 Type 2 diabetes mellitus without complications; G47.33 Obstructive sleep apnea (adult) (pediatric); M35.3 Polymyalgia rheumatica
CPT/HCPCS: 36415; 36416; 85027; C1713; C1776; G8978-GP-CM; G8979-GP-CJ; J1100; J1885; J2001; J2250; J2405; J2704; J2795; J3010; J3490; J7050; S0020

== ENCOUNTER 2018-12-23 09:20 | Outpatient (CLI) | payer MEDICARE ==
--- NOTE | 2018-12-23 10:28 | MMO ---
Bilateral MAMMO Bilat Screen [facility]. CLINICAL HISTORY: Patient is 73 years old and is seen for screening. The patient has no family history of breast cancer. The patient has no personal history of cancer. VIEWS: The views performed were: bilateral craniocaudal with tomosynthesis and bilateral mediolateral oblique with tomosynthesis. FILMS COMPARED: The present examination has been compared to prior imaging studies performed at [facility] on 03/23/2015, 12/11/2015, 12/12/2016 and 12/18/2017. MAMMOGRAM FINDINGS: There are scattered fibroglandular densities. There are stable benign appearing calcifications seen in both breasts. There are no suspicious masses, suspicious calcifications, or new areas of architectural distortion. IMPRESSION: THERE IS NO MAMMOGRAPHIC EVIDENCE OF MALIGNANCY. A ROUTINE FOLLOW-UP MAMMOGRAM IN 1 YEAR IS RECOMMENDED. THE RESULTS OF THIS EXAM WERE SENT TO THE PATIENT. ACR BI-RADS Category 2 - Benign finding MAMMOGRAPHY NOTE: 1. A negative mammogram report should not delay a biopsy if a dominant of clinically suspicious mass is present. 2. Approximately 10% to 15% of breast cancers are not detected by mammography. 3. Adenosis and dense breasts may obscure an underlying neoplasm.
== END 2018-12-23 09:21 | disposition home or self-care (01) ==
LOC: BICMAMMO 09:20
PROVIDERS: ATTEND Obstetrics & Gynecology
DX: Z12.31 Encounter for screening mammogram for malignant neoplasm of breast (principal)
CPT/HCPCS: 77063; 77067

== ENCOUNTER 2023-10-09 10:06 | Outpatient (CLI) | payer MEDICARE ==
[2023-10-09] MEDS ORDERED: E-Z-HD 98% W/W 340GM BOT (x-ray ONLY) ONE (10:45)
[2023-10-09] MEDS ORDERED: Barium Sulfate 96% 176 GM BOT (xray ONLY) ONE (10:45)
== END 2023-10-09 10:07 | disposition home or self-care (01) ==
LOC: RAD 10:06
PROVIDERS: ATTEND Internal Medicine
DX: R13.10 Dysphagia, unspecified (principal); K44.9 Diaphragmatic hernia without obstruction or gangrene; K21.9 Gastro-esophageal reflux disease without esophagitis
CPT/HCPCS: 74220